=== PATIENT | female | born 1980 | race Caucasian/White ===

== ENCOUNTER → 2017-10-26 | Outpatient (CLI) | payer OTHER | END | disposition home or self-care (01) | LOC: C.LAB1850 14:36 | PROVIDERS: ATTEND Internal Medicine Infectious Disease | DX: R59.1 Generalized enlarged lymph nodes (principal) ==

== ENCOUNTER → 2017-11-29 | Outpatient (CLI) | payer OTHER ==
--- NOTE | 2017-11-30 07:47 | MAMMOGRAPHY REPORT ---
BILATERAL DIGITAL DIAGNOSTIC MAMMOGRAM TOMOSYNTHESIS WITH CAD AND TARGETED RIGHT ULTRASOUND: 11/29/2017 CLINICAL HISTORY: 37-year-old woman presents with a 5 week history of a palpable breast lump in the r ight upper outer quadrant. She reports it is less noticeable than when it was first discovered and de scribes this lump as a "grain of rice". No skin erythema or thickening. No nipple discharge of the right breast. No family history of breast cancer. TECHNIQUE: Bilateral breast tomosynthesis in addition to standard 2D mammography was performed. Curre nt study was also evaluated with a Computer Aided Detection (CAD) system. COMPARISON: No prior exams were available for comparison. BREAST COMPOSITION: The tissue of both breasts is extremely dense, which lowers the sensitivity of m ammography. FINDINGS: A triangular palpable marker overlies the 11:00 middle to anterior right breast, denoting t he palpable lump pointed out by the patient. No obvious masses, calcifications, areas of architectur al distortion or suspicious asymmetries are identified bilaterally. No focal skin thickening or nipp le retraction appreciated. Morphologically normal lymph nodes project over the superior pectoralis m uscles on the MLO views. Targeted ultrasound was performed in the area of palpable lump pointed out by the patient, and the 11 :00 right breast approximately 1 cm from the nipple. On palpation, there is nodular firm breast tiss ue. On ultrasound, there is sonographically normal dense fibroglandular tissue without evidence of a discrete solid or cystic mass. No drainable fluid collection or focal skin thickening identified in the area of concern. IMPRESSION: ACR BI-RADS CATEGORY 2: BENIGN, TARGETED ULTRASOUND ACR BI-RADS CATEGORY 2: BENIGN There is no mammographic evidence of malignancy bilaterally. No targeted sonographic evidence of mal ignancy in the 11:00 right breast in the area of tiny lump pointed out by the patient. Clinical foll ow-up is therefore recommended, as biopsy of a clinically suspicious mass should not be precluded by negative imaging. Otherwise would recommend routine screening mammography once age-appropriate. Approximately 10% of breast cancers are not detected with mammography. A negative mammographic report should not delay biopsy if a clinically suggestive mass is present. Winifred Mullen M.D. ay/:11/29/2017 11:10:50 Shoulder Sawyer: Linnette MARSH(Aury)(M), [facility] letter sent: Normal 08/31 BI-RADS Code: ACR BI-RADS Category 2: Benign Ultrasound BI-RADS: ACR BI-RADS Category 2: Benign
== END | disposition home or self-care (01) ==
LOC: C.MAMM 09:30
PROVIDERS: ATTEND Obstetrics & Gynecology
DX: N63.11 Unspecified lump in the right breast, upper outer quadrant (principal)